=== PATIENT | male | born 1985 | race Caucasian/White ===

== ENCOUNTER 2021-11-30 21:37 | Emergency (ER) | payer OTHER ==
[~2021-11-30] VITALS: Ht 175.3 cm; Wt 95.3 kg
[2021-11-30 21:45] VITALS: BP 142/94
--- NOTE | 2021-11-30 21:54 | NUR ---
PT AMBULATORY W STEADY GAIT TO BED 02.
--- NOTE | 2021-11-30 22:00 | NUR ---
36/M BIB SELF TO THE ED WITH CHIEF COMPLAINT OF FEVER. A&0X4 [place] SPEAKING ONLY. KNOWS [employer] AND [place]. VERBALLY RESPONSIVE AND ABLE TO COMMUNICATE NEEDS. VSS. PER PT, SYMPTOMS STARTED 3 DAYS AGO WHEN HE STRAINED WHILE HAVING A BM. PT REPORTS THAT A BULGE FORMED IN THE ANAL OPENING ASSOCIATED WITH 7/10 PAIN. PT REPORTS HE HAD FEVER TODAY AND TOOK TYLENOL 3-4 HOURS AGO. PT IS CURRENTLY AFEBRILE. PT IS AMBULATORY AND CONTINENT OF VOID AND BM. ERMD AWARE. PMH: EAR INFECTION ALLERGIES: NKA MEDS: DENIES
--- NOTE | 2021-11-30 22:22 | NUR ---
Dr. Castillo at bedside to exam patient with JESSICA Martinez.
[2021-11-30] MEDS ORDERED: LIDOCAINE/EPI 1% 1:100000 20 ML VIAL INJ ONE (22:25)
[2021-11-30] MEDS ORDERED: cefTRIAXone 1,000 MG in LIDOCAINE MPF 1% 2.1 ML IM ONE (22:25)
--- NOTE | 2021-11-30 22:30 | NUR ---
ERMD AT BEDSIDE WITH PT.
[2021-11-30] MEDS ORDERED: cefTRIAXone 1,000 MG VIAL ONE (22:39)
[2021-11-30] MEDS ORDERED: LIDOCAINE MPF 1% 5 ML ONE (22:42)
--- NOTE | 2021-11-30 22:45 | NUR ---
ABX IM SHOT ADMINISTERED ON L DELTOID. TOLERATED WELL.
[2021-11-30] MEDS ORDERED: NAPR-54 PO (23:05)
[2021-11-30] MEDS ORDERED: CEPH500C16 PO (23:05)
[2021-11-30 23:10] VITALS: BP 142/94
--- NOTE | 2021-11-30 23:10 | NUR ---
Patient discharged with v/s stable. Written and verbal after care instructions given and explained. Patient alert, oriented and verbalized understanding of instructions. Ambulatory with steady gait. All questions addressed prior to discharge. ID band removed. Patient advised to follow up with PMD. Rx of CEPHALEXIN AND NAPROXEN given. Patient REVIEWED on indication of medication including possible reaction and side effects. Opportunity to ask questions provided and answered.
== END 2021-11-30 23:10 | disposition home or self-care (01) ==
LOC: MED 21:37
DX: L02.31 Cutaneous abscess of buttock (principal); Z79.2 Long term (current) use of antibiotics; Z79.1 Long term (current) use of non-steroidal anti-inflammatories (NSAID)
CPT/HCPCS: 10060; 96372; 99283; J0696; J2001

== ENCOUNTER 2021-12-02 16:30 | Emergency (ER) | payer OTHER ==
[~2021-12-02] VITALS: Ht 175.3 cm; Wt 95.3 kg
[~2021-12-02 16:30] MED LIST: CEPH500C16 PO; NAPR-54 PO
[2021-12-02 16:52] VITALS: BP 130/94
--- NOTE | 2021-12-02 17:05 | NUR ---
PT AMBULATED TO LOBBY.
--- NOTE | 2021-12-02 17:30 | NUR ---
PT AMB TO BED 12.
[2021-12-02] MEDS ORDERED: cephALEXin 500 MG CAP PO ONE (17:40)
[2021-12-02] MEDS ORDERED: SULFAMETH/TRIMETH DS 800/160MG 1 TAB PO ONE (17:40)
[2021-12-02] MEDS ORDERED: CEPH-588 PO (17:56)
[2021-12-02] MEDS ORDERED: SULF-59 PO (17:56)
[2021-12-02 18:29] VITALS: BP 130/94
== END 2021-12-02 18:29 | disposition home or self-care (01) ==
LOC: MED 16:30
DX: Z48.01 Encounter for change or removal of surgical wound dressing (principal); Z79.2 Long term (current) use of antibiotics; Z79.1 Long term (current) use of non-steroidal anti-inflammatories (NSAID)
CPT/HCPCS: 99283